=== PATIENT | female | born 1980 | race Caucasian/White ===

== ENCOUNTER 2022-01-02 18:27 | Observation (INO) | payer BC ==
[~2022-01-02] VITALS: Ht 167.6 cm; Wt 56.7 kg
[2022-01-02 19:42] LABS: BILIRUBIN,URINE NEGATIVE (NEGATIVE); CLARITY/URINE CLEAR (CLEAR); COLOR,URINE YELLOW (YELLOW); GLUCOSE,URINE NEGATIVE (NEGATIVE); KETONES,URINE NEGATIVE (NEGATIVE); LEUKOCYTE ESTERASE ,URINE NEGATIVE (NEGATIVE); NITRITE, URINE NEGATIVE (NEGATIVE); PH,URINE 5.5 (5.0-8.0); PROTEIN URINE NEGATIVE (NEGATIVE); UROBILINOGEN,URINE 0.2 (0.2-1.0)
[2022-01-02 19:46] LABS: BLOOD, URINE TRACE (NEGATIVE)
[2022-01-02 19:49] LABS: RBC,URINE 0-3 /HPF (0-3); WBC,URINE 0-3 /HPF (0-3)
[2022-01-02 19:50] LABS: BACTERIA,URINE FEW /HPF (None Seen)
== END 2022-01-02 20:10 | disposition home or self-care (01) ==
LOC: SPU 18:27
PROVIDERS: ADMIT Specialist; ATTEND Specialist
DX: O26.852 Spotting complicating pregnancy, second trimester (principal); Z3A.17 17 weeks gestation of pregnancy
CPT/HCPCS: 81000; G0378; 81002

== ENCOUNTER 2022-05-28 12:51 | Observation (INO) | payer BC | END 2022-05-28 16:48 | disposition home or self-care (01) | LOC: SPU 12:51 | PROVIDERS: ADMIT Specialist; ATTEND Specialist | DX: Z34.83 Encounter for supervision of other normal pregnancy, third trimester (principal); Z3A.39 39 weeks gestation of pregnancy | CPT/HCPCS: 76815; G0378; 59025; 81002 ==

== ENCOUNTER 2022-06-03 01:05 | Inpatient (IN) | payer BC ==
[~2022-06-03] VITALS: Ht 167.6 cm; Wt 68.9 kg
[2022-06-03] MEDS ORDERED: NALBUPHINE HCL 10 MG/ML AMP IM PRN (03:15)
[2022-06-03] MEDS ORDERED: OXYTOCIN/0.9 % SODIUM CHLORIDE 1,000 ML IV SCH ×2 (03:15→12:45)
[2022-06-03] MEDS ORDERED: LR 1,000 ML IV ONE (03:15)
[2022-06-03] MEDS ORDERED: NALBUPHINE HCL 10 MG/ML AMP IVP PRN (03:15)
[2022-06-03] MEDS ORDERED: LR 1,000 ML IV SCH (03:15)
[2022-06-03] MEDS ORDERED: TERBUTALINE SULFATE 1 MG/ML VIAL SUBCUT ONE (03:15)
[2022-06-03] MEDS ORDERED: LIGHT MINERAL OIL 10 ML VIAL MC ONE (03:29)
[2022-06-03] MEDS ORDERED: LIDOCAINE PF 1% 30ML(POUR BTL) INJ ONE (03:29)
[2022-06-03] MEDS ORDERED: NALOXONE HCL 0.4 MG/ML AMP (NARCAN) ONE (03:30)
[2022-06-03 03:40] LABS: HEMATOCRIT 40.9 % (36-48); HEMOGLOBIN 14.4 g/dL (12.0-16.0); MEAN CORPUSCULAR HEMOGLOBIN 32 pg (27-31); MEAN CORPUSCULAR HGB CONC 35 % (32-36); MEAN CORPUSCULAR VOLUME 92 fL (79.0-98.0); PLATELET COUNT (AUTO) 238 K/uL (130-430); RED BLOOD CELL COUNT(AUTO) 4.48 MIL/uL (4.2-6.2); RED CELL DISTRIBUTION WIDTH 13.8 % (9.0-15.0)
[2022-06-03 04:25] VITALS: BP_SYST 114
[2022-06-03 05:05] LABS: BAND % (MANUAL) 0 % (0-6); LYMPHOCYTES % (MANUAL) 4 % (20-46)
[2022-06-03 05:06] LABS: BASOPHILS % (MANUAL) 0 % (0-2); EOSINOPHILS % (MANUAL) 1 % (0-7); MONOCYTES % (MANUAL) 1 % (0-11)
[2022-06-03] MEDS ORDERED: OXYTOCIN/0.9 % SODIUM CHLORIDE 1,000 ML IV ONE (12:45)
[2022-06-03] MEDS ORDERED: MEASLES,MUMPS&RUBELLA VACC/PF 12500 UNIT/0.5 ML VIAL SUBQ PRN (12:45)
[2022-06-03] MEDS ORDERED: DIPHTH,PERTUSS(ACELL),TET VAC 0.5 ML VIAL (Tdap) I.M. PRN (12:45)
[2022-06-03] MEDS ORDERED: WITCH HAZEL LEAF 1 MED.PAD MED.PAD TP PRN (12:45)
[2022-06-03] MEDS ORDERED: ANUSOL 1 EA SUPP.RECT (PREPARATION H) RC PRN (12:45)
[2022-06-03] MEDS ORDERED: RHO(D) IMMUNE GLOBULIN/MALTOSE 1500 UNITS/1.3 ML (WINHRO) IM PRN (12:45)
[2022-06-03] MEDS ORDERED: METHYLERGONOVINE MALEATE 0.2 MG TABLET PO PRN (12:45)
[2022-06-03] MEDS ORDERED: LANOLIN 7 GM OINT. TP PRN (12:45)
[2022-06-03] MEDS ORDERED: HYDROCORTISONE 0.5% CREAM 28.4 GM CREAM.GM. TP PRN (12:45)
[2022-06-03] MEDS ORDERED: DERMOPLAST SPRAY TP PRN (12:45)
[2022-06-03] MEDS: IBUPROFEN 600 MG TABLET PO SCH ×2 (16:30→22:57)
[2022-06-03] MEDS ORDERED: TEMAZEPAM 15 MG CAPSULE PO PRN (21:00)
[2022-06-03] MEDS ORDERED: SENNOSIDES/DOCUSATE SODIUM 1 TAB TABLET(SENOKOT-S) PO SCH (21:00)
[2022-06-04] MEDS: IBUPROFEN 600 MG TABLET PO SCH ×2 (04:25→12:01)
[2022-06-04 08:04] LABS: BASOPHILS % (AUTO) 0.1 % (0.0-2.0); HEMOGLOBIN 11.1 g/dL (12.0-16.0); LYMPHOCYTES # (AUTO) 2.2 K/uL (1.0-5.5); LYMPHOCYTES % (AUTO) 7.5 % (20.5-51.5); MEAN CORPUSCULAR HEMOGLOBIN 32 pg (27-31); MEAN CORPUSCULAR HGB CONC 35 % (32-36); MEAN CORPUSCULAR VOLUME 93 fL (79.0-98.0); MONOCYTES # (AUTO) 1.6 K/uL (0.0-1.0); MONOCYTES % (AUTO) 5.2 % (1.7-9.3); NEUTROPHILS % (AUTO) 87.2 % (40.0-70.0); PLATELET COUNT (AUTO) 187 K/uL (130-430); RED BLOOD CELL COUNT(AUTO) 3.44 MIL/uL (4.2-6.2); RED CELL DISTRIBUTION WIDTH 13.8 % (9.0-15.0)
[2022-06-04 08:29] LABS: WHITE BLOOD COUNT (AUTO) 29.8 K/uL (4.8-10.8)
[2022-06-04] MEDS ORDERED: DOCUSATE SODIUM 100 MG CAPSULE PO SCH (09:00)
== END 2022-06-04 15:50 | disposition home or self-care (01) | DRG 806 ==
LOC: SPU 01:05 → OBSVTOIN 01:05
PROVIDERS: ADMIT Specialist; ATTEND Specialist
PROC: 10E0XZZ Delivery of Products of Conception, External Approach (ICD-10-PCS; principal; 2022-06-03)
PROC: 0KQM0ZZ Repair Perineum Muscle, Open Approach (ICD-10-PCS; 2022-06-03)
DX: O48.0 Post-term pregnancy (principal); D62 Acute posthemorrhagic anemia; Z37.0 Single live birth; O77.0 Labor and delivery complicated by meconium in amniotic fluid; O70.1 Second degree perineal laceration during delivery; Z20.822 Contact with and (suspected) exposure to COVID-19; Z3A.40 40 weeks gestation of pregnancy
CPT/HCPCS: 36415; 81002; 85007; 85025; 85027; 86592; 86870; 86886; 86900; 86901; J2001; J2310; J2590; J7120